=== PATIENT | female | born 2000 | race Caucasian/White ===

== ENCOUNTER 2020-07-12 16:42 | Inpatient (IN) | payer OTHER ==
[~2020-07-12] VITALS: Ht 170.2 cm; Wt 76.7 kg
[2020-07-12 17:36] LABS: HEMOGLOBIN 11.4 gm/dl (12.3-15.3); RED BLOOD COUNT 4.06 M/UL (4.00-5.10); WHITE BLOOD COUNT 11.7 K/UL (4.5-11.0)
[2020-07-12 18:01] LABS: BUN/CREATININE RATIO 13 (0-10)
[2020-07-13] MEDS ORDERED: PRENATAL VITAM1 EAC3 PO (01:37)
[2020-07-13] MEDS ORDERED: IBUPROFEN600 MG PO (17:59)
[2020-07-13] MEDS ORDERED: DOCUSATE SODIU250 MG PO (17:59)
[2020-07-14 06:05] LABS: HEMOGLOBIN 8.6 gm/dl (12.3-15.3)
[2020-07-14] MEDS ORDERED: FERROUS SULFAT325 MG PO (11:51)
== END 2020-07-14 20:30 | disposition home or self-care (01) | DRG 807 ==
LOC: GENOP 16:42 → OB 16:56
PROVIDERS: Obstetrics & Gynecology; ADMIT Obstetrics & Gynecology
PROC: 0U7C7ZZ Dilation of Cervix, Via Natural or Artificial Opening (ICD-10-PCS; 2020-07-12)
PROC: 10E0XZZ Delivery of Products of Conception, External Approach (ICD-10-PCS; principal; 2020-07-13)
PROC: 0KQM0ZZ Repair Perineum Muscle, Open Approach (ICD-10-PCS; 2020-07-13)
PROC: 10907ZC Drainage of Amniotic Fluid, Therapeutic from Products of Conception, Via Natural or Artificial Opening (ICD-10-PCS; 2020-07-13)
PROC: 3E0P7VZ Introduction of Hormone into Female Reproductive, Via Natural or Artificial Opening (ICD-10-PCS; 2020-07-13)
PROC: 3E033VJ Introduction of Other Hormone into Peripheral Vein, Percutaneous Approach (ICD-10-PCS; 2020-07-13)
PROC: 3E0234Z Introduction of Serum, Toxoid and Vaccine into Muscle, Percutaneous Approach (ICD-10-PCS; 2020-07-14)
DX: O13.4 Gestational [pregnancy-induced] hypertension without significant proteinuria, complicating childbirth (principal); Z37.0 Single live birth; Z3A.38 38 weeks gestation of pregnancy; O70.1 Second degree perineal laceration during delivery; Z23 Encounter for immunization; Z20.822 Contact with and (suspected) exposure to COVID-19; O99.02 Anemia complicating childbirth; D64.9 Anemia, unspecified
CPT/HCPCS: 36415; 51702; 80053; 81001; 82570; 82800; 84156; 84550; 85014; 85018; 85025; 90707; 90715; J2405; J2590; J7120; U0002